=== PATIENT | female | born 1940 | race Two or more races ===

== ENCOUNTER 2018-03-12 07:29 | Outpatient (CLI) | payer OTHER ==
[~2018-03-12 07:29] MED LIST: ASA81 MG; BYSTOLIC5 MG; CALTRATE 600 +1 EACH; COZAAR25 MG; FOLIC ACID0.4 MG; JANUVIA50 MG; MIRAPEX0.25 MG; MOBIC15 MG; PLAVIX75 MG; PRAVASTATIN SOD20 MG; SYNTHROID50 MCG; VITAMIN D31 ML; ZANTAC300 MG; ZYRTEC10 M3; [UNRECOGNIZED DRUG - OTHER]; [UNRECOGNIZED DRUG - SUPPLY]
== END 2018-03-12 14:43 | disposition home or self-care (01) ==
LOC: NUCLEAR 07:29
DX: I20.8 Other forms of angina pectoris (principal); I25.10 Atherosclerotic heart disease of native coronary artery without angina pectoris
CPT/HCPCS: 78452; 93017; A9500

== ENCOUNTER 2019-02-14 09:14 | Emergency (ER) | payer OTHER ==
[~2019-02-14] VITALS: Ht 142.2 cm; Wt 49.9 kg
[2019-02-14] MEDS ORDERED: METFORMIN HCL500 M2 (09:54)
== END 2019-02-14 13:26 | disposition home or self-care (01) ==
LOC: ER 09:14
DX: R41.3 Other amnesia (principal)

== ENCOUNTER 2023-12-21 21:50 | Inpatient (IN) | payer OTHER ==
[~2023-12-21] VITALS: Ht 149.9 cm; Wt 52.2 kg
[~2023-12-21 21:50] MED LIST changes: +METFORMIN HCL500 M2
--- NOTE | 2023-12-21 22:14 | NUR ---
SE RECIBE FEMINA ALERTA Y ORIENTADA X3 CUAL REFIERE PRESENTA PRESION EN EL PECHO QUE IRRADIA A BRAZO IZQ Y MALESTAR EN EL ESTOMAGO HACE VARIOS BELLE. FAMILIARES REFIEREN QUE FEMINA NO SE ESTA TOMANDO KARL MEDICAMENTOS PARA LA DEPRESION Y SE PRESENTA ANSIOSA EN LOS ULTIMOS BELLE. SE REALIZA EKG Y SE PRESENTA A QUIEN REFIERE UBICAR EN OBS.
--- NOTE | 2023-12-21 22:27 | NUR ---
PACIENTE ALERTA Y ORIENTADA X3. SE EDUCA A PACIENTE SOBRE PROCESO DE APARNA DE MUESTRAS, REFIERE ENTENDER. SE EJECUTAN ORDENES BAJO MEDIDAS ASEPTICAS.
[2023-12-21 22:33] LABS: HEMATOCRIT 37.8 % (36.0-45.00); HEMOGLOBIN 13.1 g/dL (12.0-15.00); MEAN CELL VOLUME 91.9 fL (80.00-100.00); MEAN CORPUSCULAR HEMOGLOBIN 31.9 pg (27.00-32.0); MEAN CORPUSCULAR HGB CONC 34.7 g/dl (32.0-36.0); PLATELET COUNT 190 K/uL (150-450); RED BLOOD COUNT 4.11 M/uL (4.00-6.00); RED CELL DISTRIBUTION WIDTH 13.2 % (11.5-14.5)
[2023-12-21 23:04] LABS: ALBUMIN 3.9 gm/dL (3.4-5.0); BILIRUBIN TOTAL 0.3 mg/dL (0.3-1.2); CALCIUM 9.4 mg/dL (8.5-10.1); CREATININE SERUM 1.06 mg/dL (0.55-1.02); GFR 49.51; GLOBULINA 3.6 G/DL (2.4-3.5); POTASSIUM 4.35 mEq/L (3.5-5.1); TOTAL PROTEIN 7.5 gm/dL (6.4-8.2)
--- NOTE | 2023-12-21 23:13 | NUR ---
SE RECIBE PACIENTE ALERTA Y ORIENTADA X 3 ESFERAS EN CAMA EN COMPANIA DE FAMILIAR. PRESENTANDO BUEN PATRON RESPIRATORIO. PENDIENTE RESULTADOS DE LABORATORIOS Y PENDIENTE LAURA X. SE MANTIENE EN OBSERVACION POR CAMBIOS.
[2023-12-21] MEDS ORDERED: ASPIRIN 325 MG TABLET PO ONE (23:45)
[2023-12-21] MEDS ORDERED: TICAGRELOR 90 MG TABLET PO ONE (23:45)
[2023-12-22] MEDS ORDERED: NITROGLYCERIN IN 5 % DEXTROSE 250 ML IV ONE ×2 (00:15→15:15)
[2023-12-22] MEDS ORDERED: HEPARIN SODIUM,PORCINE 5,000 UNITS/ML VIAL IV ONE (00:15)
[2023-12-22] MEDS ORDERED: METOPROLOL TARTRATE 5MG/5ML AMPUL IV ONE (00:15)
[2023-12-22] MEDS ORDERED: INSULIN LISPRO 1,000 UNIT/10 ML UNITS SUBCUTANEO PRN ×2 (00:15→13:00)
[2023-12-22] MEDS ORDERED: DEXTROSE 50 % IN WATER 0.5 G/ML DISP.SYRIN IV PRN ×2 (00:15→13:00)
--- NOTE | 2023-12-22 00:43 | NUR ---
RE-EVALUA PACIENTE. SE ORIENTA A PACIENTE SOBRE TX MEDICO, REFIERE ENTENDER. SE REALIZAN MUESTRAS DE LABORATORIO BAJO MEDIDAS ASEPTICAS. SE ADMINISTRAN MEDICAMENTOS YVONNE ORDEN MEDICA. SE UBICA A PACIENTE EN AREA DE DOLOR DE PECHO, SE CONECTA A MONITOR CARDIACO Y OXIMETRIA DE PULSO. PENDIENTE CONSULTA CON . SE ENTREGA PACIENTE A .
--- NOTE | 2023-12-22 00:44 | NUR ---
RE-EVALUA PACIENTE. SE ORIENTA SOBRE TX MEDICO, REFIERE ENTENDER. SE REALIZAN MUESTRAS DE LABORATORIO BAJO MEDIDAS ASEPTICAS. SE ADMINISTRAN MEDICAMENTOS YVONNE ORDEN MEDICA. SE UBICA A PACIENTE EN AREA DE DOLOR DE PECHO, SE CONECTA A MONITOR CARDIACO Y OXIMETRIA DE PULSO. PENDIENTE CONSULTA CON . SE ENTREGA A .
[2023-12-22 00:45] LABS: INR 1.01; PARTIAL THROMBOPLASTIN TIME 24.8 SECONDS (22.0-34.0); PROTHROMBIN TIME 10.6 SECONDS (9.0-11.5)
[2023-12-22 00:52] LABS: ALT/SGPT 40 U/L (12-78); AST/SGOT 29 U/L (15-37); LDH 259 U/L (84-246)
[2023-12-22 00:53] LABS: PHOSPHOKINASE CREATININE 167 U/L (26-192)
--- NOTE | 2023-12-22 07:57 | NUR ---
SE RECIBE PTE DEL TURNO ANTERIOR EN LA UNIDAD DE CHEST PAIN EN CAMA #17 ALERTA Y ORIENTADA X3 CONECTADA A MONITOR CARDIACO Y OXIMETRIA EN POSICION SEMI SZYMANSKI CON BARANDAS ELEVADAS. PTE CANALIZADA EN BRAZO BRAZO DAVIS X2 CON ANGIOS #20 AMBOS PATENTES CON DRIP DE TRIDIL BAJANDO A 1.5ML/HR. ABDOMEN DEPRESIBLE AL TACTO. EXTREMIDADES INFERIORES AYALA DE EDEMA Y ENROJECIMIENTO. PTE ORINANDO ESPONTANEO. SE MANTIENE BAJO OBSERVACION POR CAMBIOS SIGNIFICATIVOS. PENDIENTE CONSULTA
[2023-12-22] MEDS ORDERED: ENOXAPARIN SODIUM 40 MG/0.4 ML SYRINGE SUBCUTANEO SCH (12:56)
[2023-12-22] MEDS ORDERED: LOSARTAN POTASSIUM 25 MG TABLET PO SCH (12:56)
[2023-12-22] MEDS ORDERED: DEXTROSE 50 % IN WATER 0.5 G/ML VIAL IV PRN (13:15)
[2023-12-22] MEDS ORDERED: TICAGRELOR 90 MG TABLET PO SCH (17:00)
[2023-12-22] MEDS ORDERED: SIMVASTATIN 20 MG TABLET PO SCH (17:00)
[2023-12-22] MEDS ORDERED: ENOXAPARIN SODIUM 60 MG/0.6 ML SYRINGE SUBCUTANEO SCH (21:00)
[2023-12-23] MEDS ORDERED: LEVOTHYROXINE SODIUM 50 MCG TABLET PO SCH (06:00)
[2023-12-23 06:12] LABS: HEMATOCRIT 37.8 % (36.0-45.00); HEMOGLOBIN 13.2 g/dL (12.0-15.00); MEAN CELL VOLUME 92.4 fL (80.00-100.00); MEAN CORPUSCULAR HEMOGLOBIN 32.4 pg (27.00-32.0); PLATELET COUNT 193 K/uL (150-450); RED BLOOD COUNT 4.09 M/uL (4.00-6.00); RED CELL DISTRIBUTION WIDTH 12.8 % (11.5-14.5)
[2023-12-23 06:42] LABS: ALBUMIN 3.8 gm/dL (3.4-5.0); BILIRUBIN TOTAL 0.71 mg/dL (0.3-1.2); CALCIUM 9.2 mg/dL (8.5-10.1); CREATININE SERUM 1.03 mg/dL (0.55-1.02); GFR 51.17; GLOBULINA 3.6 G/DL (2.4-3.5); TOTAL PROTEIN 7.4 gm/dL (6.4-8.2)
[2023-12-23 06:44] LABS: POTASSIUM 4.26 mEq/L (3.5-5.1)
[2023-12-23] MEDS ORDERED: ASPIRIN 81 MG TABLET.EC PO SCH (09:00)
== END 2023-12-23 06:53 | disposition designated cancer center or children's hospital (05) | DRG 282 ==
LOC: ER 21:50 → ICU-2 12-22 14:12
PROVIDERS: General Practice; ADMIT Internal Medicine; ATTEND Internal Medicine
PROC: B246ZZZ Ultrasonography of Right and Left Heart (ICD-10-PCS; principal; 2023-12-22)
DX: I21.4 Non-ST elevation (NSTEMI) myocardial infarction (principal); Z20.822 Contact with and (suspected) exposure to COVID-19